=== PATIENT | female | born 1965 | race Caucasian/White ===

== ENCOUNTER 2024-06-19 12:30 | Observation (INO) ==
[2024-06-19] MEDS ORDERED: Midazolam 10 mg/10 ml VIAL 1 mg/ml 10 ml VIAL (10 mg) ONE (16:18)
[2024-06-19] MEDS ORDERED: fentaNYL 100 mcg/2 ml 50 MCG/ML VIAL ONE (16:18)
[2024-06-19] MEDS ORDERED: Dextrose 50% Syringe 50 ml 25 GM/50 ML SYRINGE IV PUSH PRN (18:43)
[2024-06-19 21:22] LABS: ABS Eosinophils 0.2 10^3/uL (0.0-0.5); ABS Monocytes 0.5 10^3/uL (0.0-0.9); ABS Neutrophils 1.5 10^3/uL (1.5-7.6); Eosinophil % 5.2 %; Hematocrit 32.4 % (35-45); Lymphocyte % 32.3 %; Mean Corpuscular Hemoglobin 32.8 pg (27-33); Mean Corpuscular Volume 96.6 fL (80-97); Platelet Count 98 10^3/uL (150-450); Red Blood Count 3.35 10^6/uL (3.63-4.92); Red Cell Distribution Width 18.6 % (12-17); White Blood Count 3.2 10^3/uL (3.8-11.8)
[2024-06-19 21:44] LABS: Albumin 3.7 g/dL (3.2-5.2); Albumin/Globulin Ratio 2.6 (1-3); Calcium 8.1 mg/dL (8.6-10.3); Creatinine, Serum 0.86 mg/dL (0.51-0.95); Globulin 1.4 g/dL (2-4); Magnesium 2.3 mg/dL (1.9-2.7); Potassium 3.8 mmol/L (3.5-5.0); Total Bilirubin 0.8 mg/dL (0.2-1.0); Total Protein 5.1 g/dL (6.4-8.9); eGFR CKD-EPI 77.3 (>60)
[2024-06-19] MEDS: Enoxaparin 40 MG/0.4 ML SYR SUBCUT SCH (23:03)
[2024-06-19] MEDS: Pantoprazole VIAL 40 MG VIAL IV SCH (23:03)
[2024-06-20 07:04] LABS: Hematocrit 31.6 % (35-45); Hemoglobin 11.2 g/dL (11.5-14.3); Mean Corpuscular Hgb Conc 35.3 g/dL (31-36); Mean Corpuscular Volume 96.4 fL (80-97); Mean Platelet Volume 8.5 fL (7.5-11.2); Platelet Count 102 10^3/uL (150-450); Red Blood Count 3.28 10^6/uL (3.63-4.92); White Blood Count 2.9 10^3/uL (3.8-11.8)
[2024-06-20 07:16] LABS: Calcium 8.1 mg/dL (8.6-10.3); Creatinine, Serum 0.85 mg/dL (0.51-0.95); Magnesium 2.2 mg/dL (1.9-2.7); Potassium 3.8 mmol/L (3.5-5.0); eGFR CKD-EPI 78.4 (>60)
[2024-06-20] MEDS: Mometasone/Formoter 200/5 MDI INH SCH (08:27)
[2024-06-20 08:45] LABS: ABS Eosinophils 0.2 10^3/uL (0.0-0.5); ABS Lymphocytes 0.9 10^3/uL (1.0-4.8); ABS Monocytes 0.3 10^3/uL (0.0-0.9); ABS Neutrophils 1.4 10^3/uL (1.5-7.6); ABS Nucleated RBC 0.01 10^3/ul; Eosinophil % 5.9 %; Lymphocyte % 32.2 %; Nucleated Red Blood Cells % 0.2 %/100WBC (0.0-0.8)
[2024-06-20 08:46] LABS: Anisocytosis 1+
[2024-06-20 10:08] VITALS: BP 104/63
== END 2024-06-20 12:43 | disposition left against medical advice (07) ==
LOC: ED 12:30 → MEDTELE 16:15 → ENDO 16:17
PROVIDERS: ADMIT Student in an Organized Health Care Education/Training Program; ATTEND Hospitalist